=== PATIENT | female | born 1965 | race Asian ===

== ENCOUNTER 2017-11-28 08:29 | Inpatient (IN) | payer BC ==
[2017-11-28 09:34] LABS: ADD MAN DIFF? NO
[2017-11-28 09:38] LABS: BASOPHILS % 0.4 % (0.0-2.0); EOSINOPHILS # 0.1 10^3/ul (0.0-0.5); EOSINOPHILS % 1.3 % (0.0-7.0); HEMATOCRIT 43.3 % (37.0-47.0); HEMOGLOBIN 13.9 g/dl (12.0-16.0); LYMPHOCYTES # 1.4 10^3/ul (0.8-2.9); LYMPHOCYTES % 19.1 % (15.0-51.0); MEAN CORPUSCULAR HEMOGLOBIN 26.6 pg (29.0-33.0); MEAN CORPUSCULAR HGB CONC 32.1 g/dl (32.0-37.0); MEAN PLATELET VOLUME 10.1 fl (7.4-10.4); MONOCYTE # 0.3 10^3/ul (0.3-0.9); MONOCYTES % 4.5 % (0.0-11.0); NEUTROPHIL # 5.5 10^3/ul (1.6-7.5); NEUTROPHILS % 73.5 % (39.0-77.0); PLATELET COUNT 278 10^3/UL (140-415); RED BLOOD COUNT 5.22 10^6/ul (4.20-5.40); RED CELL DISTRIBUTION WIDTH 13.9 % (11.5-14.5)
[2017-11-28 09:38] LABS: WHITE BLOOD COUNT 7.5 10^3/ul (4.8-10.8)
[2017-11-28] MEDS: ASPIRIN 325 MG TAB PO (09:46)
[2017-11-28 09:57] LABS: INR 0.91; PROTIME 12.3 Sec (11.9-14.9)
[2017-11-28 09:58] LABS: PARTIAL THROMBOPLASTIN TIME 26.2 Sec (25.0-35.0)
[2017-11-28] MEDS ORDERED: NITROGLYCERIN (SL) 0.4 MG TAB SL ×2 (10:00→14:00)
[2017-11-28 10:02] LABS: ALANINE AMINOTRANSFERASE 84 IU/L (13-69); ALBUMIN 4.4 g/dl (3.3-4.9); ALBUMIN/GLOBULIN RATIO 1.41; ALKALINE PHOSPHATASE 95 IU/L (42-121); AMYLASE 64 U/L (11-123); ANION GAP 9 (8-16); ASPARTATE AMINO TRANSFERASE 47 IU/L (15-46); BILIRUBIN,INDIRECT 0.4 mg/dl (0-1.1); BILIRUBIN,TOTAL 0.4 mg/dl (0.2-1.3); BLOOD UREA NITROGEN 13 mg/dl (7-20); CARBON DIOXIDE 30 mmol/L (21-31); CHLORIDE 105 mmol/L (97-110); CREATININE 0.59 mg/dl (0.44-1.00); GLUCOSE 123 mg/dl (70-220); LIPASE 58 U/L (23-300); POTASSIUM 3.4 mmol/L (3.5-5.1); SODIUM 141 mmol/L (135-144); TOTAL PROTEIN 7.5 g/dl (6.1-8.1)
[2017-11-28] MEDS: NITROGLYCERIN 2% 1 GM OINT PKT TD (10:11)
[2017-11-28 10:16] LABS: TROPONIN-I < 0.010 ng/ml (0.000-0.120)
[2017-11-28] MEDS ORDERED: ALBUTEROL 0.083% (NEB) 2.5 MG/3 ML AMP NEB (13:30)
[2017-11-28] MEDS ORDERED: DOCUSATE SODIUM 100 MG CAP PO (14:00)
[2017-11-28] MEDS ORDERED: ONDANSETRON 4 MG INJ IV (14:00)
[2017-11-28] MEDS ORDERED: NACL 0.9% 3 ML SYG IV (14:00)
[2017-11-28] MEDS: ASPIRIN 81 MG TAB PO (14:00)
[2017-11-28] MEDS ORDERED: LORAZEPAM 2 MG INJ IV (14:00)
[2017-11-28] MEDS ORDERED: ACETAMINOPHEN 325 MG TAB PO (14:00)
[2017-11-28] MEDS: POTASSIUM CHLORIDE (SR) 10 MEQ TAB PO (14:38)
[2017-11-28] MEDS: PANTOPRAZOLE (EC) 40 MG TAB PO (14:47)
[2017-11-28] MEDS: CEFTRIAXONE 1 GM/50 ML (PMX) 50 ML IVPB (15:38)
[2017-11-28] MEDS: CLOPIDOGREL 75 MG TAB PO (15:38)
[2017-11-28] MEDS ORDERED: ZOLPIDEM 5 MG TAB PO (18:30)
[2017-11-29 07:06] LABS: ADD MAN DIFF? NO
[2017-11-29 07:08] LABS: BASOPHILS % 0.4 % (0.0-2.0); EOSINOPHILS # 0.2 10^3/ul (0.0-0.5); EOSINOPHILS % 2.7 % (0.0-7.0); HEMATOCRIT 40.5 % (37.0-47.0); HEMOGLOBIN 12.8 g/dl (12.0-16.0); LYMPHOCYTES # 1.2 10^3/ul (0.8-2.9); LYMPHOCYTES % 22.1 % (15.0-51.0); MEAN CORPUSCULAR HEMOGLOBIN 26.8 pg (29.0-33.0); MEAN CORPUSCULAR HGB CONC 31.6 g/dl (32.0-37.0); MEAN CORPUSCULAR VOLUME 84.7 fl (82.0-101.0); MEAN PLATELET VOLUME 10.1 fl (7.4-10.4); MONOCYTE # 0.3 10^3/ul (0.3-0.9); MONOCYTES % 5.6 % (0.0-11.0); NEUTROPHIL # 3.8 10^3/ul (1.6-7.5); NEUTROPHILS % 68.3 % (39.0-77.0); PLATELET COUNT 235 10^3/UL (140-415); RED BLOOD COUNT 4.78 10^6/ul (4.20-5.40); RED CELL DISTRIBUTION WIDTH 13.9 % (11.5-14.5)
[2017-11-29 07:08] LABS: WHITE BLOOD COUNT 5.6 10^3/ul (4.8-10.8)
[2017-11-29 07:31] LABS: ALANINE AMINOTRANSFERASE 82 IU/L (13-69); ALBUMIN 3.9 g/dl (3.3-4.9); ALBUMIN/GLOBULIN RATIO 1.44; ALKALINE PHOSPHATASE 67 IU/L (42-121); ANION GAP 13 (8-16); ASPARTATE AMINO TRANSFERASE 45 IU/L (15-46); BILIRUBIN,INDIRECT 0.4 mg/dl (0-1.1); BILIRUBIN,TOTAL 0.4 mg/dl (0.2-1.3); BLOOD UREA NITROGEN 12 mg/dl (7-20); CALCIUM 8.9 mg/dl (8.4-10.2); CARBON DIOXIDE 29 mmol/L (21-31); CHLORIDE 104 mmol/L (97-110); CHOL/HDL RATIO 5.2 RATIO; CHOLESTEROL 174 mg/dl (100-200); CREATININE 0.54 mg/dl (0.44-1.00); GLUCOSE 112 mg/dl (70-220); HDL CHOLESTEROL 33 mg/dl (37-92); LDL CHOLESTEROL,CALCULATED 96 mg/dl; MAGNESIUM 2.4 mg/dl (1.7-2.5); POTASSIUM 3.8 mmol/L (3.5-5.1); SODIUM 142 mmol/L (135-144); TOTAL PROTEIN 6.6 g/dl (6.1-8.1); TRIGLYCERIDES 225 mg/dl (0-149)
[2017-11-29 07:47] LABS: T4 (THYROXINE) 8.7 ug/dl (5.5-11.0)
[2017-11-29 07:51] LABS: HEMOGLOBIN A1C 5.8 % (0-5.9)
[2017-11-29 08:01] LABS: THYROID STIMULATING HORMONE < 0.015 MIU/L (0.465-4.680)
[2017-11-29] MEDS: ASPIRIN 81 MG TAB PO ×2 (08:46→08:47)
[2017-11-29] MEDS: HYDROCHLOROTHIAZIDE 25 MG TAB PO (08:46)
[2017-11-29] MEDS: PANTOPRAZOLE (EC) 40 MG TAB PO (08:46)
[2017-11-29] MEDS: AMLODIPINE 5 MG TAB PO (08:46)
[2017-11-29] MEDS: CLOPIDOGREL 75 MG TAB PO (08:46)
[2017-11-29 09:11] LABS: TROPONIN-I < 0.010 ng/ml (0.000-0.120)
[2017-11-29] MEDS: CEFTRIAXONE 1 GM/50 ML (PMX) 50 ML IVPB (14:04)
[2017-11-30] MEDS: PANTOPRAZOLE (EC) 40 MG TAB PO (08:55)
[2017-11-30] MEDS: ASPIRIN 81 MG TAB PO (08:55)
[2017-11-30] MEDS: CLOPIDOGREL 75 MG TAB PO (08:55)
[2017-11-30] MEDS: HYDROCHLOROTHIAZIDE 25 MG TAB PO (08:55)
[2017-11-30] MEDS: AMLODIPINE 5 MG TAB PO (08:56)
== END 2017-11-30 10:30 | disposition home or self-care (01) | DRG 313 ==
LOC: E/R 08:29 → MS3 09:51 → TEL 15:15
DX: R07.89 Other chest pain (principal); I10 Essential (primary) hypertension; E78.5 Hyperlipidemia, unspecified; Z86.73 Personal history of transient ischemic attack (TIA), and cerebral infarction without residual deficits; R53.1 Weakness; R20.0 Anesthesia of skin; Z79.02 Long term (current) use of antithrombotics/antiplatelets
CPT/HCPCS: 70450; 71045; 80053; 80061; 82150; 83036; 83690; 83735; 84436; 84443; 84484; 85025; 85610; 85730; 93005; 93306; 99285-25

== ENCOUNTER → 2019-02-15 | Outpatient (CLI) | payer BC ==
[2019-02-15 16:04] LABS: ADD MAN DIFF? NO
[2019-02-15 16:10] LABS: WHITE BLOOD COUNT 6.1 10^3/ul (4.8-10.8)
[2019-02-15 16:10] LABS: BASOPHILS % 0.3 % (0.0-2.0); EOSINOPHILS # 0.1 10^3/ul (0.0-0.5); EOSINOPHILS % 1.3 % (0.0-7.0); HEMATOCRIT 43.4 % (37.0-47.0); LYMPHOCYTES # 0.9 10^3/ul (0.8-2.9); MEAN CORPUSCULAR HEMOGLOBIN 26.4 pg (29.0-33.0); MEAN CORPUSCULAR HGB CONC 32.3 g/dl (32.0-37.0); MEAN CORPUSCULAR VOLUME 81.9 fl (82.0-101.0); MEAN PLATELET VOLUME 9.6 fl (7.4-10.4); MONOCYTE # 0.3 10^3/ul (0.3-0.9); MONOCYTES % 4.8 % (0.0-11.0); NEUTROPHIL # 4.7 10^3/ul (1.6-7.5); NEUTROPHILS % 77.9 % (39.0-77.0); PLATELET COUNT 242 10^3/UL (140-415); RED CELL DISTRIBUTION WIDTH 13.7 % (11.5-14.5)
[2019-02-15 16:28] LABS: ALANINE AMINOTRANSFERASE 35 IU/L (13-69); ALBUMIN 4.6 g/dl (3.3-4.9); ALBUMIN/GLOBULIN RATIO 1.31; ALKALINE PHOSPHATASE 80 IU/L (42-121); ANION GAP 12 (5-13); ASPARTATE AMINO TRANSFERASE 29 IU/L (15-46); BILIRUBIN,INDIRECT 0.9 mg/dl (0-1.1); BILIRUBIN,TOTAL 0.9 mg/dl (0.2-1.3); BLOOD UREA NITROGEN 15 mg/dl (7-20); CALCIUM 9.6 mg/dl (8.4-10.2); CARBON DIOXIDE 28 mmol/L (21-31); CHLORIDE 102 mmol/L (97-110); CREATININE 0.58 mg/dl (0.44-1.00); Estimated GFR > 60 mL/min (>60); GLUCOSE 105 mg/dl (70-220); POTASSIUM 3.5 mmol/L (3.5-5.1); SODIUM 142 mmol/L (135-144); TOTAL PROTEIN 8.1 g/dl (6.1-8.1)
[2019-02-15 16:31] LABS: HEMOGLOBIN A1C 5.7 % (0-5.9)
== END | disposition home or self-care (01) ==
LOC: LAB 15:33
DX: D64.9 Anemia, unspecified (principal); R73.03 Prediabetes
CPT/HCPCS: 80053; 83036; 85025